=== PATIENT | female | born 1995 | race African-American/Black ===

== ENCOUNTER 2020-11-21 20:15 | Observation (INO) | payer MEDICAID ==
[~2020-11-21] VITALS: Ht 167.6 cm; Wt 128.8 kg
== END 2020-11-21 23:15 | disposition home or self-care (01) ==
LOC: SPU 20:15
PROVIDERS: ADMIT Obstetrics & Gynecology; ATTEND Obstetrics & Gynecology
DX: O26.853 Spotting complicating pregnancy, third trimester (principal); Z3A.38 38 weeks gestation of pregnancy
CPT/HCPCS: 76815; G0378

== ENCOUNTER 2020-11-26 16:02 | Inpatient (IN) | payer OTHER, SELFPAY ==
[~2020-11-26] VITALS: Ht 170.2 cm; Wt 128.8 kg
[2020-11-26] MEDS ORDERED: LR 1,000 ML IV ONE (20:15)
[2020-11-26] MEDS ORDERED: NALBUPHINE HCL 10 MG/ML AMP IVP PRN (20:15)
[2020-11-26] MEDS: LR 1,000 ML IV SCH ×2 (20:20→23:30)
[2020-11-26 20:23] VITALS: BP_SYST 102
[2020-11-26] MEDS: OXYTOCIN/0.9 % SODIUM CHLORIDE 1,000 ML IV SCH (21:05)
[2020-11-26 22:42] LABS: PLATELET COUNT (AUTO) 259 K/uL (130-430)
[2020-11-26 22:53] LABS: BASOPHILS % (AUTO) 0.3 % (0.0-2.0); EOSINOPHILS # (AUTO) 0.1 K/uL (0.0-0.4); EOSINOPHILS % (AUTO) 0.6 % (0.0-4.0); LYMPHOCYTES # (AUTO) 2.2 K/uL (1.0-5.5); LYMPHOCYTES % (AUTO) 25.9 % (20.5-51.5); MEAN CORPUSCULAR HEMOGLOBIN 26 pg (27-31); MEAN CORPUSCULAR HGB CONC 33 % (32-36); MEAN CORPUSCULAR VOLUME 78 fL (79.0-98.0); MONOCYTES # (AUTO) 0.6 K/uL (0.0-1.0); MONOCYTES % (AUTO) 6.6 % (1.7-9.3); NEUTROPHILS # (AUTO) 5.7 K/uL (1.8-7.7); NEUTROPHILS % (AUTO) 66.6 % (40.0-70.0); RED BLOOD CELL COUNT(AUTO) 4.24 MIL/uL (4.2-6.2); RED CELL DISTRIBUTION WIDTH 15.5 % (9.0-15.0); WHITE BLOOD COUNT (AUTO) 8.5 K/uL (4.8-10.8)
[2020-11-27] MEDS: LR 1,000 ML IV SCH (08:00)
--- NOTE | 2020-11-27 13:52 | NUR ---
Dietitian Recommendations * Recommend continuing regular diet post-delivery * Consider nutrition consult for education prior to D/C [facility] Please refer to Nutrition Assessment for details. Addendum: 11/27/20 at [address] Amended: Links added.
[2020-11-27] MEDS ORDERED: LR 500 ML IV ONE (14:45)
[2020-11-27] MEDS ORDERED: FENT2mCg/mL-ROPIVA0.2%/NS EPID 200 ML EP SCH (14:45)
[2020-11-27] MEDS ORDERED: fentaNYL CITRATE/PF 100 MCG/2 ML AMP ONE (14:52)
[2020-11-27] MEDS ORDERED: ROPIVACAINE HCL/PF 0.2% 200 ML ONE (14:53)
[2020-11-27] MEDS: OXYTOCIN/0.9 % SODIUM CHLORIDE 1,000 ML IV SCH (18:21)
[2020-11-27] MEDS ORDERED: SENNOSIDES/DOCUSATE SODIUM 1 TAB TABLET(SENOKOT-S) PO PRN (21:00)
[2020-11-27] MEDS ORDERED: DERMOPLAST SPRAY TP PRN (21:00)
[2020-11-27] MEDS ORDERED: OXYCODONE/ACETAMINOPHEN 5-325 TABLET PO PRN (21:00)
[2020-11-27] MEDS ORDERED: LANOLIN 7 GM OINT. TP PRN (21:00)
[2020-11-27] MEDS ORDERED: DIPH-TET-PERTUS Vaccine 0.5 ML VIAL (ADACEL) I.M. PRN (21:00)
[2020-11-27] MEDS ORDERED: HYDROcodone/ACETAMIN 5-325 MG TAB (NORCO/ VICODIN) PO PRN (21:00)
[2020-11-27] MEDS ORDERED: OXYTOCIN/0.9 % SODIUM CHLORIDE 1,000 ML IV ONE (21:00)
[2020-11-27] MEDS ORDERED: MEASLES,MUMPS&RUBELLA VACC/PF 12500 UNIT/0.5 ML VIAL SUBQ PRN (21:00)
[2020-11-27] MEDS ORDERED: METHYLERGONOVINE MALEATE 0.2 MG TABLET PO PRN (21:00)
[2020-11-27] MEDS ORDERED: WITCH HAZEL LEAF 1 MED.PAD MED.PAD TP PRN (21:00)
[2020-11-27] MEDS ORDERED: RHO(D) IMMUNE GLOBULIN/MALTOSE 1500 UNITS/1.3 ML (WINHRO) IM PRN (21:00)
[2020-11-28] MEDS: IBUPROFEN 600 MG TABLET PO SCH ×4 (00:30→17:52)
[2020-11-28 06:52] LABS: BASOPHILS % (AUTO) 0.3 % (0.0-2.0); EOSINOPHILS # (AUTO) 0.1 K/uL (0.0-0.4); EOSINOPHILS % (AUTO) 0.8 % (0.0-4.0); HEMATOCRIT 29.1 % (36-48); HEMOGLOBIN 9.6 g/dL (12.0-16.0); LYMPHOCYTES # (AUTO) 2.7 K/uL (1.0-5.5); MEAN CORPUSCULAR HEMOGLOBIN 26 pg (27-31); MEAN CORPUSCULAR HGB CONC 33 % (32-36); MEAN CORPUSCULAR VOLUME 78 fL (79.0-98.0); MONOCYTES # (AUTO) 0.8 K/uL (0.0-1.0); MONOCYTES % (AUTO) 8.6 % (1.7-9.3); NEUTROPHILS # (AUTO) 6.3 K/uL (1.8-7.7); NEUTROPHILS % (AUTO) 63.3 % (40.0-70.0); PLATELET COUNT (AUTO) 225 K/uL (130-430); RED BLOOD CELL COUNT(AUTO) 3.74 MIL/uL (4.2-6.2); RED CELL DISTRIBUTION WIDTH 15.7 % (9.0-15.0); WHITE BLOOD COUNT (AUTO) 9.9 K/uL (4.8-10.8)
[2020-11-28] MEDS: DOCUSATE SODIUM 100 MG CAPSULE PO PRN ×2 (12:01→17:52)
[2020-11-29] MEDS: IBUPROFEN 600 MG TABLET PO SCH ×2 (00:18→06:18)
[2020-11-29] MEDS: OXYCODONE/ACETAMINOPHEN 5-325 TABLET PO PRN ×2 (00:19→06:21)
[2020-11-29] MEDS: DOCUSATE SODIUM 100 MG CAPSULE PO PRN (00:19)
[2020-12-01 19:06] LABS: FTA-Ab (T PALLIDUM) Non Reactive (Non Reactive)
== END 2020-11-29 12:15 | disposition home or self-care (01) | DRG 560 ==
LOC: SPU 19:55
PROVIDERS: ADMIT Obstetrics & Gynecology; ATTEND Obstetrics & Gynecology
PROC: 10E0XZZ Delivery of Products of Conception, External Approach (ICD-10-PCS; principal; 2020-11-27)
PROC: 3E033VJ Introduction of Other Hormone into Peripheral Vein, Percutaneous Approach (ICD-10-PCS; 2020-11-27)
PROC: 3E0R3BZ Introduction of Anesthetic Agent into Spinal Canal, Percutaneous Approach (ICD-10-PCS; 2020-11-27)
PROC: 00HU33Z Insertion of Infusion Device into Spinal Canal, Percutaneous Approach (ICD-10-PCS; 2020-11-27)
PROC: 0HQ9XZZ Repair Perineum Skin, External Approach (ICD-10-PCS; 2020-11-27)
DX: O70.0 First degree perineal laceration during delivery (principal); O69.81X0 Labor and delivery complicated by cord around neck, without compression, not applicable or unspecified; Z20.822 Contact with and (suspected) exposure to COVID-19; Z37.0 Single live birth; Z3A.39 39 weeks gestation of pregnancy
CPT/HCPCS: 36415; 76805-TC; 81002; 82947; 85025; 86592; 86780; 86886; 86900; 86901; 94760; J2590; J3010; J7120